=== PATIENT | male | born 1975 | race Two or more races ===

== ENCOUNTER 2023-02-11 19:03 | Emergency (ER) | payer SELFPAY ==
[~2023-02-11] VITALS: Ht 182.9 cm; Wt 110.0 kg
[2023-02-11 19:27] VITALS: BP 121/75
[2023-02-11] MEDS ORDERED: IOHEXOL 300 MG/ML 100ML BOTTLE IJ ONE (19:38)
[2023-02-11 20:07] LABS: INR 0.97 (0.9-1.15); Partial Thromboplastin Time 24.9 SEC (24.5-34.5)
== END 2023-02-11 19:50 | disposition left against medical advice (07) ==
LOC: EDBD 19:03 → ER 19:03
DX: M54.59 Other low back pain (principal); F17.210 Nicotine dependence, cigarettes, uncomplicated; V89.2XXA Person injured in unspecified motor-vehicle accident, traffic, initial encounter; Y93.89 Activity, other specified; Y92.89 Other specified places as the place of occurrence of the external cause; Y99.8 Other external cause status
CPT/HCPCS: 36415; 85610; 85730